=== PATIENT | female | born 1935 | race Two or more races ===

== ENCOUNTER → 2020-05-05 | Outpatient (CLI) | payer OTHER ==
[2020-05-05 14:10] LABS: Basophils # (auto) 0 10 ^3/uL (0-0.2); Basophils % (auto) 0.7 % (0.0-2.0); Eosinophils # (auto) 0.1 10 ^3/uL (0-0.8); Hematocrit 38.7 % (36.0-46.0); Hemoglobin 13.5 g/dL (12.2-16.2); Lymphocytes # (auto) 1.1 10 ^3/uL (0.4-5.4); Lymphocytes % (auto) 22.1 % (10.0-50.0); Mean Corpuscular Hemoglobin 30.2 pg (28.0-32.0); Mean Corpuscular Hgb Conc. 34.8 g/dL (32.0-36.0); Mean Corpuscular Volume 86.8 fL (80.0-100.0); Monocytes # (auto) 0.5 10 ^3/uL (0-1.3); Monocytes % (auto) 10.2 % (0.0-12.0); Neutrophils # (auto) 3.1 10 ^3/uL (1.6-8.6); Platelet Count (auto) 325 10^3/uL (140-450); Red Blood Cells 4.46 10^6/uL (4.0-5.20); Red Cell Distribution Width 14.1 % (11.8-14.3); White Blood Cell 4.8 10^3/uL (4.4-10.8)
[2020-05-05 14:37] LABS: Urine Bacteria NONE SEEN /hpf (None Seen); Urine Blood Negative /uL (Negative); Urine Specific Gravity 1.003 (1.001-1.035); Urine WBC 1 /hpf (0 - 5)
[2020-05-05 14:41] LABS: Albumin 3.8 g/dL (3.4-5.0); Calcium 9.6 mg/dL (8.5-10.1); Potassium 4.1 mmol/L (3.5-5.1)
[2020-05-05 14:46] LABS: BUN/Creatinine Ratio 17.1; Bilirubin, Total 0.4 mg/dL (0.2-1.0); Total Protein 7.6 g/dL (6.4-8.2)
== END | disposition home or self-care (01) ==
LOC: LAB 13:51
PROVIDERS: ATTEND Family Medicine
DX: S22.000A Wedge compression fracture of unspecified thoracic vertebra, initial encounter for closed fracture (principal); I10 Essential (primary) hypertension; M80.00XD Age-related osteoporosis with current pathological fracture, unspecified site, subsequent encounter for fracture with routine healing; K21.9 Gastro-esophageal reflux disease without esophagitis; D48.5 Neoplasm of uncertain behavior of skin; X58.XXXA Exposure to other specified factors, initial encounter; Y93.89 Activity, other specified; Y92.89 Other specified places as the place of occurrence of the external cause; Y99.8 Other external cause status
CPT/HCPCS: 36415; 80053; 80061; 81001; 82306; 84443; 85025

== ENCOUNTER → 2020-05-05 | Outpatient (CLI) | payer OTHER | END | disposition home or self-care (01) | LOC: XY 13:10 | PROVIDERS: ATTEND Family Medicine | DX: I65.23 Occlusion and stenosis of bilateral carotid arteries (principal); R55 Syncope and collapse | CPT/HCPCS: 93886 ==

== ENCOUNTER → 2020-05-20 | Outpatient (CLI) | payer OTHER | END | disposition home or self-care (01) | LOC: LAB 12:57 | PROVIDERS: ATTEND Family Medicine | DX: C44.729 Squamous cell carcinoma of skin of left lower limb, including hip (principal); D48.5 Neoplasm of uncertain behavior of skin ==

== ENCOUNTER → 2020-06-04 | Outpatient (CLI) | payer OTHER | END | disposition home or self-care (01) | LOC: LAB 12:02 | PROVIDERS: ATTEND Family Medicine | DX: C44.722 Squamous cell carcinoma of skin of right lower limb, including hip (principal) ==

== ENCOUNTER → 2020-06-23 | Outpatient (CLI) | payer OTHER | END | disposition home or self-care (01) | LOC: LAB 11:02 | PROVIDERS: ATTEND Family Medicine | DX: C44.82 Squamous cell carcinoma of overlapping sites of skin (principal) ==

== ENCOUNTER 2020-08-03 20:16 | Observation (INO) | payer OTHER ==
[~2020-08-03] VITALS: Ht 157.5 cm; Wt 54.0 kg
[2020-08-03] MEDS ORDERED: ONDANSETRON HCL 4 MG/2 ML VIAL IV ONE (22:00)
[2020-08-03] MEDS ORDERED: HYDROmorphone HCL 2 MG/ML VL IV ONE (22:00)
[2020-08-03 22:14] LABS: Basophils # (auto) 0 10 ^3/uL (0-0.2); Basophils % (auto) 0.2 % (0.0-2.0); Eosinophils # (auto) 0.1 10 ^3/uL (0-0.8); Eosinophils % (auto) 1.6 % (0.0-7.0); Hemoglobin 11.8 g/dL (12.2-16.2); Lymphocytes # (auto) 1.3 10 ^3/uL (0.4-5.4); Lymphocytes % (auto) 17.7 % (10.0-50.0); Mean Corpuscular Hemoglobin 29.1 pg (28.0-32.0); Mean Corpuscular Hgb Conc. 33.9 g/dL (32.0-36.0); Monocytes # (auto) 0.5 10 ^3/uL (0-1.3); Monocytes % (auto) 7.6 % (0.0-12.0); Neutrophils # (auto) 5.2 10 ^3/uL (1.6-8.6); Neutrophils % (auto) 72.9 % (37.0-80.0); Platelet Count (auto) 315 10^3/uL (140-450); Red Blood Cells 4.07 10^6/uL (4.0-5.20); Red Cell Distribution Width 14.1 % (11.8-14.3); White Blood Cell 7.1 10^3/uL (4.4-10.8)
[2020-08-03 22:33] LABS: Alanine Aminotransferase 32 U/L (13-56); Albumin 3.5 g/dL (3.4-5.0); Anion Gap 8 (5-15); Aspartate Aminotransferase 30 U/L (15-37); BUN/Creatinine Ratio 23.2; Blood Urea Nitrogen 16 mg/dL (7-18); Calcium 8.8 mg/dL (8.5-10.1); Carbon Dioxide 26 mmol/L (21-32); Chloride 97 mmol/L (98-107); GFR African American 104 mL/min; GFR Non-African American 86 mL/min; Glucose 106 mg/dL (74-106); Sodium 131 mmol/L (136-145)
[2020-08-03 22:35] LABS: Urine Bacteria NONE SEEN /hpf (None Seen); Urine Blood TRACE /uL (Negative); Urine Specific Gravity 1.009 (1.001-1.035); Urine WBC 1 /hpf (0 - 5)
[2020-08-03 22:38] LABS: Alkaline Phosphatase 71 U/L (45-117); Bilirubin, Total 0.1 mg/dL (0.2-1.0); Total Protein 6.5 g/dL (6.4-8.2)
[2020-08-03 23:19] LABS: INR 1.01 (0.9-1.15); Partial Thromboplastin Time 30.2 sec (23.0-31.2)
[2020-08-04] MEDS ORDERED: ACETAMINOPHEN 325 MG TAB PO PRN (00:30)
[2020-08-04] MEDS ORDERED: MORPHINE SULFATE 4 MG/ML SYR/VIAL IV PRN (00:30)
[2020-08-04] MEDS ORDERED: ONDANSETRON HCL 4 MG/2 ML VIAL IV PRN (00:30)
[2020-08-04] MEDS: HYDROcodone-ACET 5/325MG TAB PO PRN ×2 (01:43→21:12)
[2020-08-04] MEDS ORDERED: KETOROLAC TROMETH 30 MG/ML 1ML VIAL IV ONE (02:15)
[2020-08-04] MEDS ORDERED: ALBUMIN 5% 250 ML IV ONE (05:00)
[2020-08-04] MEDS ORDERED: MORPHINE SULF INJ 2 MG/ML SYRINGE 1ML IV PRN ×2 (08:45)
[2020-08-04 09:05] VITALS: BP 140/53
[2020-08-04] MEDS: FAMOTIDINE 20 MG TAB PO SCH (09:38)
[2020-08-04] MEDS ORDERED: ENAL5TAB10 PO (10:29)
[2020-08-04] MEDS ORDERED: PANT40T PO (10:29)
[2020-08-04 12:30] VITALS: BP 156/76
[2020-08-04] MEDS ORDERED: ENALAPRIL MALEATE 2.5 MG TAB PO ONE (13:00)
[2020-08-04 16:47] VITALS: BP 150/67
[2020-08-04 20:00] VITALS: BP 131/67
[2020-08-04 22:01] VITALS: BP 151/67
[2020-08-05 04:35] VITALS: BP 124/51
[2020-08-05 07:20] LABS: Basophils # (auto) 0 10 ^3/uL (0-0.2); Basophils % (auto) 0.4 % (0.0-2.0); Eosinophils # (auto) 0.1 10 ^3/uL (0-0.8); Eosinophils % (auto) 1.6 % (0.0-7.0); Hematocrit 34.1 % (36.0-46.0); Hemoglobin 11.8 g/dL (12.2-16.2); Lymphocytes # (auto) 0.8 10 ^3/uL (0.4-5.4); Lymphocytes % (auto) 14.2 % (10.0-50.0); Mean Corpuscular Hemoglobin 30.1 pg (28.0-32.0); Mean Corpuscular Hgb Conc. 34.8 g/dL (32.0-36.0); Mean Corpuscular Volume 86.6 fL (80.0-100.0); Monocytes # (auto) 0.6 10 ^3/uL (0-1.3); Monocytes % (auto) 10.7 % (0.0-12.0); Neutrophils % (auto) 73.1 % (37.0-80.0); Platelet Count (auto) 283 10^3/uL (140-450); Red Blood Cells 3.94 10^6/uL (4.0-5.20); Red Cell Distribution Width 14.3 % (11.8-14.3); White Blood Cell 5.4 10^3/uL (4.4-10.8)
[2020-08-05 07:38] LABS: Potassium 3.9 mmol/L (3.5-5.1)
[2020-08-05 07:47] LABS: BUN/Creatinine Ratio 19.1; Calcium 8.2 mg/dL (8.5-10.1)
[2020-08-05 09:00] VITALS: BP 138/58
[2020-08-05] MEDS: FAMOTIDINE 20 MG TAB PO SCH (09:33)
[2020-08-05] MEDS: HYDROcodone-ACET 5/325MG TAB PO PRN ×2 (09:42→15:54)
[2020-08-05] MEDS ORDERED: ENALAPRIL MALEATE 2.5 MG TAB PO SCH (10:00)
[2020-08-05 13:00] VITALS: BP 117/60
[2020-08-05 16:50] VITALS: BP 115/51
== END 2020-08-05 18:50 | disposition home or self-care (01) ==
LOC: EDBD 20:16 → ER 20:19 → INTOOBSV 08-04 00:27 → OVERFLOW 08-04 00:27 → CENTRAL 08-04 08:38
PROVIDERS: ADMIT Nurse Practitioner; ATTEND Internal Medicine
DX: S32.512A Fracture of superior rim of left pubis, initial encounter for closed fracture (principal); Z20.822 Contact with and (suspected) exposure to COVID-19; S32.10XA Unspecified fracture of sacrum, initial encounter for closed fracture; S02.2XXA Fracture of nasal bones, initial encounter for closed fracture; I10 Essential (primary) hypertension; E78.5 Hyperlipidemia, unspecified; I25.10 Atherosclerotic heart disease of native coronary artery without angina pectoris; I25.2 Old myocardial infarction; Z85.828 Personal history of other malignant neoplasm of skin; Z90.49 Acquired absence of other specified parts of digestive tract; Z98.890 Other specified postprocedural states; Z98.49 Cataract extraction status, unspecified eye; W01.0XXA Fall on same level from slipping, tripping and stumbling without subsequent striking against object, initial encounter; Y93.89 Activity, other specified; Y92.89 Other specified places as the place of occurrence of the external cause; Y99.8 Other external cause status
CPT/HCPCS: 36415; 70450; 70486; 72125; 72192; 73100; 80048; 80053; 81001; 84484; 85025; 85610; 85730; 87426; 93005; 93306; 96365; 96375; 99285; G0378; J1170; J1885; J2405; P9045; U0003

== ENCOUNTER 2020-08-07 12:21 | Emergency (ER) | payer OTHER ==
[~2020-08-07] VITALS: Ht 160 cm; Wt 54.4 kg
[~2020-08-07 12:21] MED LIST: ENAL5TAB10 PO; PANT40T PO
[2020-08-07] MEDS ORDERED: SODIUM CHLORIDE 0.9% 1,000 ML IV ONE (12:45)
[2020-08-07 13:17] LABS: Basophils # (auto) 0 10 ^3/uL (0-0.2); Basophils % (auto) 0.3 % (0.0-2.0); Eosinophils # (auto) 0 10 ^3/uL (0-0.8); Eosinophils % (auto) 0.5 % (0.0-7.0); Hematocrit 33.4 % (36.0-46.0); Hemoglobin 11.3 g/dL (12.2-16.2); Lymphocytes # (auto) 0.7 10 ^3/uL (0.4-5.4); Lymphocytes % (auto) 8.5 % (10.0-50.0); Mean Corpuscular Hemoglobin 29.4 pg (28.0-32.0); Mean Corpuscular Hgb Conc. 33.8 g/dL (32.0-36.0); Mean Corpuscular Volume 86.8 fL (80.0-100.0); Monocytes % (auto) 11.5 % (0.0-12.0); Neutrophils # (auto) 6.7 10 ^3/uL (1.6-8.6); Neutrophils % (auto) 79.2 % (37.0-80.0); Platelet Count (auto) 293 10^3/uL (140-450); Red Blood Cells 3.85 10^6/uL (4.0-5.20); Red Cell Distribution Width 13.9 % (11.8-14.3); White Blood Cell 8.5 10^3/uL (4.4-10.8)
[2020-08-07 13:37] LABS: Calcium 9.1 mg/dL (8.5-10.1); Chloride 97 mmol/L (98-107); Potassium 4.2 mmol/L (3.5-5.1); Sodium 130 mmol/L (136-145)
[2020-08-07 13:46] LABS: Alanine Aminotransferase 22 U/L (13-56); Alkaline Phosphatase 58 U/L (45-117); Anion Gap 7 (5-15); Aspartate Aminotransferase 21 U/L (15-37); BUN/Creatinine Ratio 20.4; Bilirubin, Total 0.6 mg/dL (0.2-1.0); Blood Urea Nitrogen 11 mg/dL (7-18); Carbon Dioxide 26 mmol/L (21-32); GFR African American 138 mL/min; GFR Non-African American 114 mL/min; Glucose 123 mg/dL (74-106); Total Protein 6.5 g/dL (6.4-8.2)
[2020-08-07 16:11] LABS: Urine Bacteria FEW /hpf (None Seen); Urine Blood Negative /uL (Negative); Urine Specific Gravity 1.008 (1.001-1.035); Urine WBC 3 /hpf (0 - 5)
[2020-08-07] MEDS ORDERED: ONDANSETRON HCL 4 MG/2 ML VIAL IV ONE (16:45)
[2020-08-07] MEDS ORDERED: MORPHINE SULF INJ 2 MG/ML SYRINGE 1ML IV ONE (16:45)
[2020-08-07] MEDS ORDERED: HYDROcodone-ACET 5/325MG TAB PO ONE (17:00)
[2020-08-07 17:13] VITALS: BP 149/68
== END 2020-08-07 17:41 | disposition designated cancer center or children's hospital (05) ==
LOC: EDBD 12:21 → ER 12:21
DX: S06.5X9A Traumatic subdural hemorrhage with loss of consciousness of unspecified duration, initial encounter (principal); R55 Syncope and collapse; I10 Essential (primary) hypertension; K21.9 Gastro-esophageal reflux disease without esophagitis; Z90.49 Acquired absence of other specified parts of digestive tract; X58.XXXA Exposure to other specified factors, initial encounter; Y93.9 Activity, unspecified; Y92.89 Other specified places as the place of occurrence of the external cause; Y99.8 Other external cause status
CPT/HCPCS: 36415; 70450; 71045; 80053; 81001; 84484; 85025; 93005; 96360; 96361; 99285; J7030

== ENCOUNTER 2021-06-05 18:31 | Emergency (ER) | payer OTHER ==
[~2021-06-05] VITALS: Ht 157.5 cm; Wt 53.5 kg
[2021-06-05] MEDS ORDERED: ASPirin 81 mg TAB PO ONE (18:45)
[2021-06-05] MEDS ORDERED: LABETALOL HCL 5 MG/ML 4ML SYRINGE IV ONE (18:45)
[2021-06-05] MEDS ORDERED: LABETALOL HCL 5 MG/ML ML 20ML VIAL IV ONE (19:29)
[2021-06-05 19:41] LABS: Basophils # (auto) 0 10 ^3/uL (0-0.2); Basophils % (auto) 0.6 % (0.0-2.0); Eosinophils # (auto) 0.2 10 ^3/uL (0-0.8); Eosinophils % (auto) 3.2 % (0.0-7.0); Hematocrit 40.1 % (36.0-46.0); Hemoglobin 13.5 g/dL (12.2-16.2); Lymphocytes # (auto) 1.8 10 ^3/uL (0.4-5.4); Lymphocytes % (auto) 33.3 % (10.0-50.0); Mean Corpuscular Hemoglobin 28.9 pg (28.0-32.0); Mean Corpuscular Hgb Conc. 33.6 g/dL (32.0-36.0); Monocytes # (auto) 0.5 10 ^3/uL (0-1.3); Monocytes % (auto) 9.5 % (0.0-12.0); Neutrophils # (auto) 2.9 10 ^3/uL (1.6-8.6); Neutrophils % (auto) 53.4 % (37.0-80.0); Nucleated Red Blood Cells % 0.1 %; Red Blood Cells 4.66 10^6/uL (4.0-5.20); Red Cell Distribution Width 13.8 % (11.8-14.3); White Blood Cell 5.4 10^3/uL (4.4-10.8)
[2021-06-05 19:57] LABS: Albumin 3.9 g/dL (3.4-5.0); Calcium 9.4 mg/dL (8.5-10.1)
[2021-06-05 20:04] LABS: BUN/Creatinine Ratio 17.9; Bilirubin, Total 0.3 mg/dL (0.2-1.0); Total Protein 7.6 g/dL (6.4-8.2)
[2021-06-05 20:30] VITALS: BP 168/60
== END 2021-06-05 20:39 | disposition home or self-care (01) ==
LOC: ER 18:33
DX: R07.89 Other chest pain (principal); I10 Essential (primary) hypertension; I25.2 Old myocardial infarction; E78.5 Hyperlipidemia, unspecified; Z90.89 Acquired absence of other organs; Z90.49 Acquired absence of other specified parts of digestive tract; Z88.6 Allergy status to analgesic agent
CPT/HCPCS: 36415; 71045; 80053; 84484; 85025; 93005; 96374

== ENCOUNTER → 2022-08-12 | Outpatient (CLI) | payer MEDICARE | END | disposition home or self-care (01) | LOC: LAB 11:40 | PROVIDERS: ATTEND Family Medicine | DX: H02.826 Cysts of left eye, unspecified eyelid (principal) | CPT/HCPCS: 88302 ==

== ENCOUNTER 2022-10-15 15:21 | Inpatient (IN) | payer OTHER ==
[~2022-10-15] VITALS: Ht 157.5 cm; Wt 52.2 kg
[~2022-10-15 15:21] MED LIST changes: -ENAL5TAB10 PO; +ENAL5TAB22 PO
[2022-10-15 16:12] LABS: Basophils # (auto) 0 10 ^3/uL (0-0.2); Basophils % (auto) 0.7 % (0.0-2.0); Eosinophils # (auto) 0.1 10 ^3/uL (0-0.8); Eosinophils % (auto) 1.2 % (0.0-7.0); Hematocrit 39.5 % (36.0-46.0); Hemoglobin 13.2 g/dL (12.2-16.2); Lymphocytes # (auto) 1.3 10 ^3/uL (0.4-5.4); Lymphocytes % (auto) 20.6 % (10.0-50.0); Mean Corpuscular Hemoglobin 28.9 pg (28.0-32.0); Mean Corpuscular Hgb Conc. 33.4 g/dL (32.0-36.0); Mean Corpuscular Volume 86.4 fL (80.0-100.0); Monocytes # (auto) 0.7 10 ^3/uL (0-1.3); Monocytes % (auto) 10.9 % (0.0-12.0); Neutrophils # (auto) 4.1 10 ^3/uL (1.6-8.6); Neutrophils % (auto) 66.6 % (37.0-80.0); Nucleated Red Blood Cells % 0.1 %; Red Blood Cells 4.58 10^6/uL (4.0-5.20); White Blood Cell 6.1 10^3/uL (4.4-10.8)
[2022-10-15 16:28] LABS: INR 0.97 (0.9-1.15); Partial Thromboplastin Time 32.8 sec (24.6-33.4)
[2022-10-15 16:34] LABS: Albumin 4.3 g/dL (3.4-5.0); Calcium 9.2 mg/dL (8.5-10.1); Magnesium 2.5 mg/dL (1.6-2.6); Potassium 4.5 mmol/L (3.5-5.1)
[2022-10-15 16:38] LABS: BUN/Creatinine Ratio 14.9 (10.0-20.0); Bilirubin, Total 0.4 mg/dL (0.2-1.0)
[2022-10-16] MEDS ORDERED: ENOXAPARIN SOD 60 MG/0.6 ML SYRINGE SC ONE
[2022-10-16] MEDS ORDERED: ONDANSETRON HCL 4 MG/2 ML VIAL IV PRN
[2022-10-16] MEDS ORDERED: ACETAMINOPHEN 325 MG TAB PO PRN
[2022-10-16] MEDS ORDERED: DOCUSATE SOD 100 MG CAP PO PRN
[2022-10-16] MEDS ORDERED: ASPirin 81 mg TAB PO ONE
[2022-10-16] MEDS ORDERED: HYDROcodone-ACET 5/325MG TAB PO PRN
[2022-10-16] MEDS ORDERED: NITROGLYCERIN 0.4 MG SL TAB SL PRN
[2022-10-16] MEDS ORDERED: MORPHINE SULFATE INJ 2 MG/ml SYRG IV PRN
[2022-10-16 04:57] LABS: Basophils # (auto) 0 10 ^3/uL (0-0.2); Basophils % (auto) 0.6 % (0.0-2.0); Eosinophils # (auto) 0.1 10 ^3/uL (0-0.8); Eosinophils % (auto) 1.9 % (0.0-7.0); Hematocrit 40.7 % (36.0-46.0); Hemoglobin 13.5 g/dL (12.2-16.2); Lymphocytes # (auto) 1.4 10 ^3/uL (0.4-5.4); Lymphocytes % (auto) 30.7 % (10.0-50.0); Mean Corpuscular Hemoglobin 29.5 pg (28.0-32.0); Mean Corpuscular Hgb Conc. 33.1 g/dL (32.0-36.0); Mean Corpuscular Volume 89.4 fL (80.0-100.0); Monocytes # (auto) 0.6 10 ^3/uL (0-1.3); Monocytes % (auto) 13.7 % (0.0-12.0); Neutrophils # (auto) 2.4 10 ^3/uL (1.6-8.6); Neutrophils % (auto) 53.1 % (37.0-80.0); Nucleated Red Blood Cells % 0.1 %; Red Blood Cells 4.56 10^6/uL (4.0-5.20); Red Cell Distribution Width 14.7 % (11.8-14.3); White Blood Cell 4.6 10^3/uL (4.4-10.8)
[2022-10-16 05:01] LABS: Alanine Aminotransferase 22 U/L (13-56); Albumin 3.5 g/dL (3.4-5.0); Anion Gap 10 (5-15); Aspartate Aminotransferase 25 U/L (15-37); BUN/Creatinine Ratio 20.4 (10.0-20.0); Blood Urea Nitrogen 10 mg/dL (7-18); Calcium 8.7 mg/dL (8.5-10.1); Carbon Dioxide 20 mmol/L (21-32); Chloride 99 mmol/L (98-107); GFR African American 154 mL/min; GFR Non-African American 127 mL/min; Glucose 85 mg/dL (74-106); Potassium 4.4 mmol/L (3.5-5.1); Sodium 129 mmol/L (136-145)
[2022-10-16 05:03] LABS: Alkaline Phosphatase 63 U/L (45-117); Bilirubin, Total 0.5 mg/dL (0.2-1.0); Total Protein 6.7 g/dL (6.4-8.2)
[2022-10-16] MEDS ORDERED: ASPirin 81 mg TAB PO SCH (10:00)
[2022-10-16] MEDS ORDERED: FLEC100T PO (11:45)
[2022-10-16 16:43] LABS: Urine Bacteria NONE SEEN /hpf (None Seen); Urine Blood Negative /uL (Negative); Urine Specific Gravity 1.006 (1.001-1.035); Urine WBC <1 /hpf (0 - 5)
[2022-10-16] MEDS: SODIUM CHLORIDE 0.9% 1,000 ML IV SCH ×2 (16:52)
[2022-10-16] MEDS ORDERED: hydrALAZINE HCL 20 MG/ML VL IV PRN (18:45)
[2022-10-16] MEDS ORDERED: ATORVASTATIN 20 MG TAB PO SCH (22:00)
[2022-10-17 08:11] LABS: Calcium 8.4 mg/dL (8.5-10.1); Potassium 4.1 mmol/L (3.5-5.1)
[2022-10-17 08:40] LABS: Basophils # (auto) 0 10 ^3/uL (0-0.2); Basophils % (auto) 0.5 % (0.0-2.0); Eosinophils # (auto) 0.1 10 ^3/uL (0-0.8); Eosinophils % (auto) 1.5 % (0.0-7.0); Hematocrit 39.5 % (36.0-46.0); Hemoglobin 13.2 g/dL (12.2-16.2); Lymphocytes # (auto) 1.1 10 ^3/uL (0.4-5.4); Lymphocytes % (auto) 20.7 % (10.0-50.0); Mean Corpuscular Hemoglobin 29.3 pg (28.0-32.0); Mean Corpuscular Hgb Conc. 33.3 g/dL (32.0-36.0); Mean Corpuscular Volume 88.1 fL (80.0-100.0); Monocytes # (auto) 0.6 10 ^3/uL (0-1.3); Neutrophils # (auto) 3.7 10 ^3/uL (1.6-8.6); Neutrophils % (auto) 66.3 % (37.0-80.0); Nucleated Red Blood Cells % 0.1 %; Red Blood Cells 4.49 10^6/uL (4.0-5.20); Red Cell Distribution Width 14.7 % (11.8-14.3); White Blood Cell 5.5 10^3/uL (4.4-10.8)
[2022-10-17] MEDS: SODIUM CHLORIDE 0.9% 1,000 ML IV SCH (09:54)
[2022-10-17] MEDS ORDERED: ENOXAPARIN SOD 40 MG/0.4 ML SYRINGE SC SCH (10:00)
[2022-10-17 12:00] VITALS: BP 116/52
== END 2022-10-17 16:23 | disposition home or self-care (01) | DRG 281 ==
LOC: ER 15:21 → TELE 23:57 → TELE-WESTW 10-17 12:36
PROVIDERS: ADMIT Nurse Practitioner Family; ATTEND Internal Medicine
DX: I21.4 Non-ST elevation (NSTEMI) myocardial infarction (principal); E87.1 Hypo-osmolality and hyponatremia; E78.5 Hyperlipidemia, unspecified; I16.0 Hypertensive urgency; I10 Essential (primary) hypertension; Z79.899 Other long term (current) drug therapy; Z90.49 Acquired absence of other specified parts of digestive tract; Z88.8 Allergy status to other drugs, medicaments and biological substances
CPT/HCPCS: 36415; 71045; 80048; 80053; 81001; 82962; 83735; 83880; 84484; 85025; 85610; 85730; 93005; 93306; 96372; G0378

== ENCOUNTER 2023-02-05 15:59 | Inpatient (IN) | payer OTHER, MEDICARE ==
[~2023-02-05] VITALS: Ht 157.5 cm; Wt 53.5 kg
[~2023-02-05 15:59] MED LIST changes: +FLEC100T PO
[2023-02-05 16:58] LABS: Basophils # (auto) 0.1 10 ^3/uL (0-0.2); Basophils % (auto) 0.7 % (0.0-2.0); Eosinophils # (auto) 0.2 10 ^3/uL (0-0.8); Eosinophils % (auto) 3.2 % (0.0-7.0); Hematocrit 38.6 % (36.0-46.0); Hemoglobin 12.9 g/dL (12.2-16.2); Lymphocytes # (auto) 1.5 10 ^3/uL (0.4-5.4); Lymphocytes % (auto) 19.2 % (10.0-50.0); Mean Corpuscular Hemoglobin 28.9 pg (28.0-32.0); Mean Corpuscular Hgb Conc. 33.5 g/dL (32.0-36.0); Mean Corpuscular Volume 86.3 fL (80.0-100.0); Monocytes # (auto) 0.7 10 ^3/uL (0-1.3); Monocytes % (auto) 9.1 % (0.0-12.0); Neutrophils # (auto) 5.2 10 ^3/uL (1.6-8.6); Neutrophils % (auto) 67.8 % (37.0-80.0); Red Blood Cells 4.47 10^6/uL (4.0-5.20); Red Cell Distribution Width 14.3 % (11.8-14.3); White Blood Cell 7.7 10^3/uL (4.4-10.8)
[2023-02-05 17:04] VITALS: PULSE 57; RESP 18; O2SAT 98
[2023-02-05 17:16] LABS: Alanine Aminotransferase 23 U/L (7-40); Albumin 4.6 g/dL (3.2-4.8); Alkaline Phosphatase 88 U/L (46-116); Anion Gap 4 (5-15); Aspartate Aminotransferase 17 U/L (13-40); BUN/Creatinine Ratio 12.1 (10.0-20.0); Blood Urea Nitrogen 8 mg/dL (9-23); Calcium 9.8 mg/dL (8.7-10.4); Carbon Dioxide 28 mmol/L (20-30); Chloride 99 mmol/L (98-107); Glucose 102 mg/dL (74-106); Partial Thromboplastin Time 32.8 SEC (24.5-34.5); Potassium 4.3 mmol/L (3.5-5.1); Prothrombin Time 10.5 sec (9.3-11.8); Sodium 131 mmol/L (136-145)
[2023-02-05 17:17] LABS: Bilirubin, Total 0.4 mg/dL (0.2-1.0); Total Protein 6.9 g/dL (5.7-8.2)
[2023-02-05] MEDS ORDERED: ONDANSETRON HCL 4 MG/2 ML VIAL IV PRN (18:15)
[2023-02-05] MEDS ORDERED: HYDROmorphone HCL 2 MG/ML VL/or syr IV PRN ×2 (18:15)
[2023-02-05] MEDS ORDERED: cloNIDine HCL 0.1 MG TAB PO PRN (18:15)
[2023-02-05] MEDS ORDERED: NITROGLYCERIN 0.4 MG SL TAB SL PRN (18:15)
[2023-02-05] MEDS ORDERED: HYDROcodone-ACET 5/325MG TAB PO PRN (18:15)
[2023-02-05] MEDS ORDERED: ACETAMINOPHEN 325 MG TAB PO PRN (18:15)
[2023-02-05] MEDS ORDERED: DOCUSATE SOD 100 MG CAP PO PRN (18:15)
[2023-02-05] MEDS ORDERED: FLEC1TAB PO (18:36)
[2023-02-05] MEDS ORDERED: ASPI-325 PO (18:36)
[2023-02-05] MEDS ORDERED: LOSA50TA46 PO (18:36)
[2023-02-05] MEDS ORDERED: SODIUM CHLORIDE 0.9% 1,000 ML IV ONE (19:00)
[2023-02-05 19:37] VITALS: PULSE 53; RESP 14; O2SAT 99
[2023-02-05] MEDS: FLECAINIDE ACETATE 50 MG TAB PO SCH (22:00)
[2023-02-05] MEDS ORDERED: LOSARTAN POTASSIUM 25 MG TAB PO SCH (22:00)
[2023-02-06] VITALS (8 sets, daily range): BP systolic 145–158; BP diastolic 50–59; PULSE 52–58; RESP 14–17; TEMP 97.3–98.1; O2SAT 96–100
[2023-02-06 00:02] LABS: Urine Bacteria NONE SEEN /hpf (None Seen); Urine Blood Negative /uL (Negative); Urine Clarity Clear (Clear); Urine Color Colorless (Yellow); Urine Protein, UAD Negative (Negative); Urine Specific Gravity 1.005 (1.001-1.035); Urine Urobilinogen Normal (Negative); Urine WBC <1 /hpf (0 - 5); Urine pH 6.5 (5.0-8.0)
[2023-02-06 05:50] LABS: Basophils # (auto) 0 10 ^3/uL (0-0.2); Basophils % (auto) 0.5 % (0.0-2.0); Eosinophils # (auto) 0.3 10 ^3/uL (0-0.8); Eosinophils % (auto) 3.4 % (0.0-7.0); Hematocrit 33.6 % (36.0-46.0); Hemoglobin 11.5 g/dL (12.2-16.2); Lymphocytes # (auto) 1.6 10 ^3/uL (0.4-5.4); Lymphocytes % (auto) 19.9 % (10.0-50.0); Mean Corpuscular Hemoglobin 29.2 pg (28.0-32.0); Mean Corpuscular Hgb Conc. 34.2 g/dL (32.0-36.0); Mean Corpuscular Volume 85.3 fL (80.0-100.0); Monocytes # (auto) 0.8 10 ^3/uL (0-1.3); Monocytes % (auto) 9.6 % (0.0-12.0); Neutrophils # (auto) 5.3 10 ^3/uL (1.6-8.6); Neutrophils % (auto) 66.6 % (37.0-80.0); Red Blood Cells 3.94 10^6/uL (4.0-5.20); Red Cell Distribution Width 14.4 % (11.8-14.3); White Blood Cell 7.9 10^3/uL (4.4-10.8)
[2023-02-06 06:09] LABS: Alanine Aminotransferase 14 U/L (7-40); Albumin 3.5 g/dL (3.2-4.8); Alkaline Phosphatase 51 U/L (46-116); Anion Gap 4 (5-15); Aspartate Aminotransferase 15 U/L (13-40); BUN/Creatinine Ratio 13.8 (10.0-20.0); Bilirubin, Total 0.5 mg/dL (0.2-1.0); Blood Urea Nitrogen 8 mg/dL (9-23); Calcium 8.7 mg/dL (8.5-10.1); Carbon Dioxide 26 mmol/L (20-30); Chloride 105 mmol/L (98-107); Glucose 81 mg/dL (74-106); Potassium 4.5 mmol/L (3.5-5.1); Sodium 135 mmol/L (136-145); Total Protein 5.6 g/dL (5.7-8.2)
[2023-02-06 06:13] LABS: INR 1.07 (0.9-1.15); Partial Thromboplastin Time 32.8 SEC (24.5-34.5); Prothrombin Time 11.2 sec (9.3-11.8)
[2023-02-06] MEDS: PANTOPRAZOLE 40 MG TAB PO SCH (09:00)
[2023-02-06] MEDS: FLECAINIDE ACETATE 50 MG TAB PO SCH ×2 (09:00→22:43)
[2023-02-06] MEDS: ASPirin-EC 81 mg tab PO SCH (09:05)
[2023-02-06] MEDS ORDERED: hydrALAZINE HCL 20 MG/ML VL IV PRN (11:45)
[2023-02-06] MEDS ORDERED: LOSA50TA46 PO ×2 (16:14→16:16)
[2023-02-06] MEDS ORDERED: FLEC1TAB PO (16:14)
[2023-02-06] MEDS ORDERED: PANT40TA2 PO (16:14)
[2023-02-06] MEDS ORDERED: ASPI-543 PO (16:14)
[2023-02-06] MEDS ORDERED: CLON0.1T PO (16:14)
[2023-02-06] MEDS ORDERED: LOSA25TA15 PO (16:15)
[2023-02-06] MEDS ORDERED: MULT-1018 PO (16:16)
[2023-02-06] MEDS ORDERED: LOSARTAN POTASSIUM 25 MG TAB PO SCH ×2 (22:00)
[2023-02-07] VITALS (7 sets, daily range): BP systolic 120–170; BP diastolic 42–69; PULSE 50–70; RESP 16–18; TEMP 97.9–98.9; O2SAT 94–98
[2023-02-07] MEDS: ASPirin-EC 81 mg tab PO SCH (06:36)
[2023-02-07 06:43] LABS: Chloride 105 mmol/L (98-107); Potassium 4.6 mmol/L (3.5-5.1); Sodium 134 mmol/L (136-145)
[2023-02-07 06:44] LABS: Anion Gap 6 (5-15); Calcium 8.8 mg/dL (8.5-10.1); Carbon Dioxide 23 mmol/L (20-30)
[2023-02-07 06:49] LABS: BUN/Creatinine Ratio 10.7 (10.0-20.0); Blood Urea Nitrogen 6 mg/dL (9-23); Glucose 80 mg/dL (74-106); Triglycerides 81 mg/dL (< 150)
[2023-02-07 06:50] LABS: LDL Cholesterol 85 mg/dL (< 100)
[2023-02-07 06:51] LABS: Cholesterol 151 mg/dL (< 200); HDL Cholesterol 47 mg/dL (40-59)
[2023-02-07] MEDS: FLECAINIDE ACETATE 50 MG TAB PO SCH ×2 (09:04→21:48)
[2023-02-07] MEDS: PANTOPRAZOLE 40 MG TAB PO SCH (09:04)
[2023-02-07] MEDS ORDERED: SODIUM CHLORIDE 0.9% 500 ML IV ONE ×3 (13:40→14:00)
[2023-02-07] MEDS: LOSARTAN POTASSIUM 25 MG TAB PO SCH (21:48)
[2023-02-07] MEDS ORDERED: LOSARTAN POTASSIUM 25 MG TAB PO SCH (22:00)
[2023-02-08] VITALS (19 sets, daily range): BP systolic 116–165; BP diastolic 43–71; PULSE 60–75; RESP 12–16; TEMP 97.8–98.4; O2SAT 94–98
[2023-02-08] MEDS: ASPirin-EC 81 mg tab PO SCH (06:17)
[2023-02-08] MEDS ORDERED: VANCOMYCIN 1GM/250ML 250 ML IV ONE ×2 (09:15→09:50)
[2023-02-08] MEDS ORDERED: VANCOMYCIN HCL 1000 MG VL ONE (09:49)
[2023-02-08] MEDS ORDERED: fentaNYL CITRATE 100 MCG/2 ML VL ONE (09:50)
[2023-02-08] MEDS ORDERED: LIDOCAINE 2%HCL (LOCAL ANESTH.) INJ 20ML MDV ONE (09:50)
[2023-02-08] MEDS ORDERED: MIDAZOLAM HCL 2MG/2ML 2ml VIAL (1mg/ml) ONE (09:50)
[2023-02-08] MEDS: PANTOPRAZOLE 40 MG TAB PO SCH (10:00)
[2023-02-08] MEDS: FLECAINIDE ACETATE 50 MG TAB PO SCH ×2 (10:00→22:21)
[2023-02-08] MEDS: LOSARTAN POTASSIUM 25 MG TAB PO SCH (22:00)
[2023-02-09 04:41] VITALS: BP 140/59; PULSE 64; RESP 16; TEMP 98.5; O2SAT 96
[2023-02-09 08:30] VITALS: BP 121/46; PULSE 67; PULSE 69; RESP 14; RESP 16; TEMP 98.1; O2SAT 93
[2023-02-09] MEDS: FLECAINIDE ACETATE 50 MG TAB PO SCH (09:59)
[2023-02-09] MEDS: ASPirin-EC 81 mg tab PO SCH (09:59)
[2023-02-09] MEDS: PANTOPRAZOLE 40 MG TAB PO SCH (09:59)
[2023-02-09 12:20] VITALS: BP 116/49; TEMP 36.7
[2023-02-09 13:15] VITALS: BP 131/61; PULSE 68; RESP 16; TEMP 98.9; O2SAT 96
== END 2023-02-09 13:30 | disposition home or self-care (01) | DRG 243 ==
LOC: ER 15:59 → TELE 18:36 → TELE-WESTW 23:54
PROVIDERS: ADMIT Internal Medicine; ATTEND Internal Medicine
PROC: 0JH606Z Insertion of Pacemaker, Dual Chamber into Chest Subcutaneous Tissue and Fascia, Open Approach (ICD-10-PCS; principal; 2023-02-08)
PROC: 02H63JZ Insertion of Pacemaker Lead into Right Atrium, Percutaneous Approach (ICD-10-PCS; 2023-02-08)
PROC: 02HK3JZ Insertion of Pacemaker Lead into Right Ventricle, Percutaneous Approach (ICD-10-PCS; 2023-02-08)
DX: I49.5 Sick sinus syndrome (principal); E87.1 Hypo-osmolality and hyponatremia; I48.20 Chronic atrial fibrillation, unspecified; I16.0 Hypertensive urgency; C44.91 Basal cell carcinoma of skin, unspecified; I10 Essential (primary) hypertension; E78.5 Hyperlipidemia, unspecified; K21.9 Gastro-esophageal reflux disease without esophagitis; Z85.828 Personal history of other malignant neoplasm of skin; Z88.6 Allergy status to analgesic agent; Z90.49 Acquired absence of other specified parts of digestive tract
CPT/HCPCS: 36415; 70450; 71045; 80048; 80053; 80061; 81001; 82962; 83735; 83880; 84484; 85025; 85610; 85730; 86850; 86900; 86901; 93005; 96360; 99152; G0378; J2250